=== PATIENT | male | born 1965 | race Caucasian/White ===

== ENCOUNTER → 2016-10-20 | Outpatient (REF) | payer MEDICARE | LOC: M LAB REF 12:33 | PROVIDERS: ATTEND Internal Medicine Medical Oncology | DX: D70.9 Neutropenia, unspecified (principal); D72.819 Decreased white blood cell count, unspecified ==

== ENCOUNTER → 2024-05-16 | Outpatient (REF) | payer MEDICARE ==
[~2024-05-16] MED LIST: AMLO1TAB24 OR; AMLO2.5T3 OR; ASPI81TA26 PO; BEET ROOT EXTRACT; CINN500C12 PO; CINN500T PO; CRANCAP10 PO; CYAN2500 SL; FERR325T3 PO; FLAX10002 PO; GARL1000 PO; GARL400T PO; GARL500C8 PO; GING1CAP PO; GREE250C2 PO; IRON27TA2 PO; ISOS1TAB35 OR; METO1TAB87 OR; MILK1CAP PO; NEPH1TAB11 PO; RA M200C4 PO; RA M500C PO; SUPETAB56 PO; TAMS1CAP17; VITA-243 PO; VITA2000 PO; VITA200012 PO; VITA80003 PO; VITAE20CA PO; VITAE40CA PO; VITMTA PO; ZINC220CA PO; [UNRECOGNIZED DRUG - CODE] PO
[2024-05-16 18:08] LABS: ALBUMIN 3.8 G/DL (3.2-5.2); ALKALINE PHOSPHATASE 45 U/L (40-129); ALT/SGPT 20 U/L (7.0-40); AST/SGOT 47 U/L (<34); BILIRUBIN,TOTAL 0.4 MG/DL (0.3-1.2); BLOOD UREA NITROGEN 13 MG/DL (9-23); CALCIUM LEVEL 9.5 MG/DL (8.3-10.6); CARBON DIOXIDE LEVEL 29 MMOL/L (20-31); CHLORIDE LEVEL 105 MMOL/L (98-107); CREATININE FOR GFR 1.05 MG/DL (0.70-1.30); GLOMERULAR FILTRATION RATE > 60.0 (>49); GLUCOSE, FASTING 79 MG/DL (74-106); POTASSIUM SERUM 4.6 MMOL/L (3.5-5.1); SODIUM LEVEL 142 MMOL/L (136-145); TOTAL PROTEIN 6.8 G/DL (5.7-8.2)
== END ==
LOC: M LAB REF 17:00
PROVIDERS: ATTEND Family Medicine
DX: Z01.818 Encounter for other preprocedural examination (principal)